=== PATIENT | female | born 1970 | race Caucasian/White ===

== ENCOUNTER 2024-08-04 00:50 | Emergency (ER) | payer MEDICAID ==
[~2024-08-04] VITALS: Ht 149.9 cm; Wt 81.6 kg
[2024-08-04 00:56] VITALS: BP_SYST 135; PULSE 117; RESP 16; TEMP 97.1; O2SAT 99
[2024-08-04] MEDS: MORPHINE 4 MG INJ. 4 MG/ML VIAL IM ONE (01:18)
[2024-08-04] MEDS ORDERED: BACITRACIN 1 GM OINT TP ONE (02:04)
[2024-08-04] MEDS ORDERED: FLAPM500 PO (02:05)
[2024-08-04] MEDS ORDERED: DOXY100C5 PO (02:06)
[2024-08-04] MEDS ORDERED: OXYC-128 PO (02:07)
[2024-08-04 02:11] VITALS: BP_SYST 129; PULSE 101; RESP 18; TEMP 97.8; O2SAT 100
[2024-08-04] MEDS: metroNIDAZOLE 500 MG TABLET PO ONE (02:19)
[2024-08-04] MEDS: DOXYCYCLINE HYCLATE 100 MG TABLET PO ONE (02:19)
[2024-08-04] MEDS ORDERED: KETOROLAC TROMETHAMINE 30 MG VIAL IM ONE (04:00)
[2024-08-04] MEDS ORDERED: DIPHTH,PERTUSS(ACELL),TET VAC 0.5 ML VIAL (Tdap) I.M. ONE (04:00)
== END 2024-08-04 02:11 | disposition home or self-care (01) ==
LOC: SED 00:50
DX: S61.411A Laceration without foreign body of right hand, initial encounter (principal); Z79.899 Other long term (current) drug therapy; Z79.2 Long term (current) use of antibiotics; W54.0XXA Bitten by dog, initial encounter; Y93.89 Activity, other specified; Y92.89 Other specified places as the place of occurrence of the external cause; Y99.8 Other external cause status
CPT/HCPCS: 99283; 73130; 12004; 96372; J2270